=== PATIENT | female | born 1965 | race Caucasian/White ===

== ENCOUNTER 2018-07-12 09:24 | Emergency (ER) | payer OTHER ==
[~2018-07-12] VITALS: Ht 167.6 cm; Wt 136.1 kg
[~2018-07-12 09:24] MED LIST: CELE200C PO; GLUC1CAP57 PO; LOSA1TAB25 PO; NAPR-514 PO; NIFE30TA17 PO; OXYC1TAB15 PO; OXYC1TAB19 PO; TRAM50TA PO; WARF-78 PO; WARF3TAB50 PO; WARF3TAB54 PO
[2018-07-12 10:16] LABS: BASO # 0.1 x10^3/uL (0.0-0.2); BASO % 1 % (0-3); EOS # 0.4 x10^3/uL (0.0-0.7); EOS % 5 % (0-3); HEMATOCRIT 43.9 % (36.0-47.0); HEMOGLOBIN 15.6 g/dL (12.0-15.5); LYMPH # 2.2 x10^3/uL (1.0-4.8); LYMPH % 32 % (24-48); MEAN CORPUSCULAR HEMOGLOBIN 31 pg (25-35); MEAN CORPUSCULAR HGB CONC 36 g/dL (31-37); MEAN CORPUSCULAR VOLUME 88 fL (79-100); MONO # 0.3 x10^3/uL (0.0-1.1); MONO % 5 % (0-9); NEUT % 57 % (31-73); PLATELET COUNT 218 x10^3/uL (140-400); RED BLOOD COUNT 4.98 x10^6/uL (3.50-5.40); RED CELL DISTRIBUTION WIDTH 13.3 % (11.5-14.5); WHITE BLOOD COUNT 6.9 x10^3/uL (4.0-11.0)
[2018-07-12] MEDS: ONDANSETRON PF 4 MG/2 ML VIAL. IV ONE (10:19)
[2018-07-12] MEDS: IV NORMAL SALINE 1000ML BAG 1,000 ML IV ONE (10:19)
[2018-07-12 10:20] LABS: BILIRUBIN,URINE SMALL (NEG); CLARITY,URINE CLEAR; COLOR,URINE AMBER; NITRITE,URINE NEGATIVE (NEG); PH,URINE 5.5; PROTEIN,URINE NEGATIVE (NEG-TRACE)
[2018-07-12] MEDS: fentaNYL PF VIAL 100 MCG/2 ML VIAL IV ONE (10:22)
[2018-07-12 10:24] LABS: CALCIUM 9.1 mg/dL (8.5-10.1); GFR 58.2; POTASSIUM 3.6 mmol/L (3.5-5.1)
[2018-07-12 10:28] LABS: SQUAMOUS EPITHELIAL CELL,UR FEW /LPF
[2018-07-12 10:29] LABS: ALBUMIN 3.5 g/dL (3.4-5.0); ALBUMIN/GLOBULIN RATIO 0.8 (1.0-1.7); BACTERIA,URINE MODERATE /HPF (0-FEW); RBC,URINE OCC /HPF (0-2); TOTAL BILIRUBIN 0.6 mg/dL (0.2-1.0); TOTAL PROTEIN 7.8 g/dL (6.4-8.2)
[2018-07-12] MEDS: KETOROLAC 30 MG/ML VIAL. IV ONE (11:20)
--- NOTE | 2018-07-12 11:21 | RAD ---
PQRS Compliance Statement: One or more of the following individualized dose reduction techniques were utilized for this examination: 1. Automated exposure control 2. Adjustment of the mA and/or kV according to patient size 3. Use of iterative reconstruction technique CT ABDOMEN PELVIS WO CONTRAST Clinical Indication: RIGHT FLANK PAIN, H/O KIDNEY STONES. Comparison: CT abdomen and pelvis without contrast, January 07, 2011. Technique: Helical CT imaging of the abdomen and pelvis is performed without IV or oral contrast. Findings: Evaluation of solid organs and bowel is limited without oral and IV contrast, decreasing sensitivity for detection of pathology. Minimal atelectasis or scarring in the lung bases. Cardiac size normal. Hepatomegaly versus normal variant Julieta lobe. Cholecystectomy. There is fatty infiltration of the liver. The spleen, pancreas, adrenal glands, and abdominal aorta caliber are normal. No right renal or ureteral calculus. There is no right perinephric stranding or hydronephrosis. There is a punctate nonobstructing calculus in the lower pole of the left kidney. The distal left ureter is obscured due to beam hardening artifact from left hip arthroplasty. Given this limitation there is no left ureteral calculus. There is no left perinephric stranding or hydronephrosis. Stomach unremarkable. There is no dilated small bowel. Distal colon diverticulosis without diverticulitis. No colon wall thickening. The appendix is normal. No abdominal adenopathy or free fluid. Uterus and ovaries unremarkable. Urinary bladder is not well evaluated. Wall thickness is accentuated due to lack of distention. No obvious pelvic free fluid. No acute bone abnormality. Mild grade 1 anterolisthesis of L4 and L5. IMPRESSION: 1. No acute abdominal or pelvic abnormality. No obstructive uropathy. 2. Punctate nonobstructing calculus of the left kidney. 3. Fatty infiltration of the liver. Electronically signed by: Tres Maier MD (07/12/2018 11:17 AM) [id number]
[2018-07-12] MEDS: CIPROFLOXACIN 400MG PREMIX 200 ML IV ONE (12:00)
[2018-07-12] MEDS ORDERED: CIPR500T94 PO (12:43)
[2018-07-12] MEDS ORDERED: TRAM50TA PO (12:43)
--- NOTE | 2018-07-12 12:44 | PHYS DOC ---
Past Medical History Past Medical History: Hypertension, Kidney Stone Past Surgical History: Hip Replacement, Knee Replacement, Other Additional Past Surgical Histo: KIDNEY STONE REMOVAL Alcohol Use: None Drug Use: None Adult General Chief Complaint Chief Complaint: PAIN ON URINATION HPI HPI Patient is a 53 year old [f__sex] who presents with [] Review of Systems Review of Systems Constitutional: Denies fever or chills [] Eyes: Denies change in visual acuity, redness, or eye pain [] HENT: Denies nasal congestion or sore throat [] Respiratory: Denies cough or shortness of breath [] Cardiovascular: No additional information not addressed in HPI [] GI: Denies abdominal pain, nausea, vomiting, bloody stools or diarrhea [] : Denies dysuria or hematuria [] Musculoskeletal: Denies back pain or joint pain [] Integument: Denies rash or skin lesions [] Neurologic: Denies headache, focal weakness or sensory changes [] Endocrine: Denies polyuria or polydipsia [] All other systems were reviewed and found to be within normal limits, except as documented in this note. Current Medications Current Medications Current Medications Medications (Trade) Dose Ordered Sig/Babita Start Time Stop Time Status Last Admin Dose Admin Ciprofloxacin/ Dextrose 200 ml @ 200 mls/hr 1X ONCE 07/12/18 12:00 07/12/18 12:59 07/12/18 12:00 200 MLS/HR Fentanyl Citrate (Fentanyl 2ml Vial) 75 mcg 1X ONCE 07/12/18 10:15 07/12/18 10:17 DC 07/12/18 10:22 75 MCG Ketorolac Tromethamine (Toradol 30mg Vial) 30 mg 1X ONCE 07/12/18 11:15 07/12/18 11:16 DC 07/12/18 11:20 30 MG Ondansetron HCl (Zofran) 4 mg 1X ONCE 07/12/18 10:15 07/12/18 10:17 DC 07/12/18 10:19 4 MG Sodium Chloride 1,000 ml @ 1,000 mls/hr 1X ONCE 07/12/18 10:15 07/12/18 11:14 DC 07/12/18 10:19 1,000 MLS/HR Allergies Allergies Allergies Coded Allergies Type Severity Reaction Last Updated Verified No Known Drug Allergies 03/26/15 No Physical Exam Physical Exam Constitutional: Well developed, well nourished, no acute distress, non-toxic appearance. [] HENT: Normocephalic, atraumatic, bilateral external ears normal, oropharynx moist, no oral exudates, nose normal. [] Eyes: PERRLA, EOMI, conjunctiva normal, no discharge. [] Neck: Normal range of motion, no tenderness, supple, no stridor. [] Cardiovascular:Heart rate regular rhythm, no murmur [] Lungs & Thorax: Bilateral breath sounds clear to auscultation [] Abdomen: Bowel sounds normal, soft, no tenderness, no masses, no pulsatile masses. [] Skin: Warm, dry, no erythema, no rash. [] Back: No tenderness, no CVA tenderness. [] Extremities: No tenderness, no cyanosis, no clubbing, ROM intact, no edema. [] Neurologic: Alert and oriented X 3, normal motor function, normal sensory function, no focal deficits noted. [] Psychologic: Affect normal, judgement normal, mood normal. [] Current Patient Data Vital Signs Vital Signs Date Time Temp Pulse Resp B/P (MAP) Pulse Ox O2 Delivery O2 Flow Rate FiO2 07/12/18 11:21 85 115/77 (90) 98 Room Air 07/12/18 10:24 18 07/12/18 09:39 98.6 98.6 Lab Values Laboratory Tests Test 07/12/18 10:00 White Blood Count 6.9 x10^3/uL (4.0-11.0) Red Blood Count 4.98 x10^6/uL (3.50-5.40) Hemoglobin 15.6 g/dL (12.0-15.5) H Hematocrit 43.9 % (36.0-47.0) Mean Corpuscular Volume 88 fL (79-100) Mean Corpuscular Hemoglobin 31 pg (25-35) Mean Corpuscular Hemoglobin Concent 36 g/dL (31-37) Red Cell Distribution Width 13.3 % (11.5-14.5) Platelet Count 218 x10^3/uL (140-400) Neutrophils (%) (Auto) 57 % (31-73) Lymphocytes (%) (Auto) 32 % (24-48) Monocytes (%) (Auto) 5 % (0-9) Eosinophils (%) (Auto) 5 % (0-3) H Basophils (%) (Auto) 1 % (0-3) Neutrophils # (Auto) 4.0 x10^3uL (1.8-7.7) Lymphocytes # (Auto) 2.2 x10^3/uL (1.0-4.8) Monocytes # (Auto) 0.3 x10^3/uL (0.0-1.1) Eosinophils # (Auto) 0.4 x10^3/uL (0.0-0.7) Basophils # (Auto) 0.1 x10^3/uL (0.0-0.2) Urine Collection Type Unknown Urine Color Eden Urine Clarity Clear Urine pH 5.5 Urine Specific Hudson >=1.030 Urine Protein Negative mg/dL (NEG-TRACE) Urine Glucose (UA) Negative mg/dL (NEG) Urine Ketones (Stick) Negative mg/dL (NEG) Urine Blood Negative (NEG) Urine Nitrite Negative (NEG) Urine Bilirubin Small (NEG) Urine Urobilinogen Dipstick 1.0 mg/dL (0.2 mg/dL) Urine Leukocyte Esterase Moderate (NEG) Urine RBC Occ /HPF (0-2) Urine WBC 11-20 /HPF (0-4) Urine Squamous Epithelial Cells Few /LPF Urine Bacteria Moderate /HPF (0-FEW) Urine Mucus Slight /LPF Sodium Level 138 mmol/L (136-145) Potassium Level 3.6 mmol/L (3.5-5.1) Chloride Level 102 mmol/L (98-107) Carbon Dioxide Level 25 mmol/L (21-32) Anion Gap 11 (6-14) Blood Urea Nitrogen 12 mg/dL (7-20) Creatinine 1.0 mg/dL (0.6-1.0) Estimated GFR (Cockcroft-Gault) 58.2 BUN/Creatinine Ratio 12 (6-20) Glucose Level 165 mg/dL (70-99) H Calcium Level 9.1 mg/dL (8.5-10.1) Total Bilirubin 0.6 mg/dL (0.2-1.0) Aspartate Amino Transferase (AST) 44 U/L (15-37) H Alanine Aminotransferase (ALT) 83 U/L (14-59) H Alkaline Phosphatase 113 U/L (46-116) Total Protein 7.8 g/dL (6.4-8.2) Albumin 3.5 g/dL (3.4-5.0) Albumin/Globulin Ratio 0.8 (1.0-1.7) L Laboratory Tests 07/12/18 10:00 Laboratory Tests 07/12/18 10:00 EKG EKG [] Radiology/Procedures Radiology/Procedures [] Course & Med Decision Making Course & Med Decision Making Pertinent Labs and Imaging studies reviewed. (See chart for details) [] Dragon Disclaimer Dragon Disclaimer This electronic medical record was generated, in whole or in part, using a voice recognition dictation system. Departure Departure Impression: Primary Impression: UTI (urinary tract infection) Additional Impression: Pyelonephritis Disposition: HOME, SELF-CARE Condition: STABLE Referrals: JAYCOB GARCIA (PCP) Patient Instructions: Pyelonephritis, Adult, Urinary Tract Infection Additional Instructions: Increase fluids and rest. Take the medications as directed. Do not drive or operate heavy machinery until you know how you're affected by tramadol. Follow- up with your primary care physician in one week for urine recheck or return to the emergency department if worsening. Scripts Tramadol Hcl (TRAMADOL HCL) 50 Mg Tablet 50 MG PO Q6HRS PRN for PAIN, #14 TAB Prov: ANGIE BUSTILLOS APRN 07/12/18 Ciprofloxacin Hcl (CIPRO) 500 Mg Tablet 1 TAB PO BID for pylonephritis, #20 TAB Prov: ANGIE BUSTILLOS APRN 07/12/18 Problem Qualifiers ANGIE BUSTILLOS APRN Jul 12, 2018 12:44
[2018-07-12 13:00] VITALS: BP 123/76
[2018-07-12] MEDS ORDERED: CIPROFLOXACIN 400MG PREMIX 200 ML IV SCH (21:00)
== END 2018-07-12 13:28 | disposition home or self-care (01) ==
LOC: ER 09:24
DX: N12 Tubulo-interstitial nephritis, not specified as acute or chronic (principal); N39.0 Urinary tract infection, site not specified; I10 Essential (primary) hypertension; Z87.442 Personal history of urinary calculi; Z96.649 Presence of unspecified artificial hip joint; Z96.659 Presence of unspecified artificial knee joint
CPT/HCPCS: 36415; 74176; 80053; 81001; 85025; 87086; 96365; 96375; 99284; J0744; J1885; J2405; J3010; J7030

== ENCOUNTER 2019-02-12 14:39 | Emergency (ER) | payer OTHER ==
[~2019-02-12] VITALS: Ht 167.6 cm; Wt 140.6 kg
[~2019-02-12 14:39] MED LIST changes: +CIPR500T94 PO
[2019-02-12] MEDS ORDERED: fentaNYL PF VIAL 100 MCG/2 ML VIAL IV ONE ×3 (15:00→17:30)
[2019-02-12] MEDS ORDERED: ONDANSETRON PF 4 MG/2 ML VIAL. IV ONE (15:00)
[2019-02-12 15:32] LABS: BASO # 0.1 x10^3/uL (0.0-0.2); BASO % 1 % (0-3); EOS # 0.3 x10^3/uL (0.0-0.7); EOS % 5 % (0-3); HEMOGLOBIN 15.7 g/dL (12.0-15.5); LYMPH # 1.9 x10^3/uL (1.0-4.8); LYMPH % 28 % (24-48); MEAN CORPUSCULAR HEMOGLOBIN 31 pg (25-35); MEAN CORPUSCULAR HGB CONC 35 g/dL (31-37); MEAN CORPUSCULAR VOLUME 88 fL (79-100); MONO # 0.4 x10^3/uL (0.0-1.1); MONO % 5 % (0-9); NEUT # 4.2 x10^3/uL (1.8-7.7); NEUT % 62 % (31-73); PLATELET COUNT 206 x10^3/uL (140-400); RED BLOOD COUNT 5.09 x10^6/uL (3.50-5.40); RED CELL DISTRIBUTION WIDTH 13.6 % (11.5-14.5); WHITE BLOOD COUNT 6.8 x10^3/uL (4.0-11.0)
--- NOTE | 2019-02-12 15:35 | RAD ---
Examination: 3 views of the right knee HISTORY: History of fall, dislocation. COMPARISON: 03/26/2015 Findings/ impression: There is knee dislocation with the femur dislocated posteriorly, medially and inferiorly in relation to the tibia and fibula. Large knee joint effusion. Total knee arthroplasty identified. Electronically signed by: Aamir Estrada MD (02/12/2019 3:32 PM) [facility]
[2019-02-12 15:36] LABS: CALCIUM 8.9 mg/dL (8.5-10.1); CREATININE 1.1 mg/dL (0.6-1.0); POTASSIUM 3.9 mmol/L (3.5-5.1)
[2019-02-12 15:38] LABS: PROTHROMBIN TIME PATIENT 12.8 SEC (11.7-14.0)
[2019-02-12 15:43] LABS: ALBUMIN 3.6 g/dL (3.4-5.0); ALBUMIN/GLOBULIN RATIO 0.8 (1.0-1.7); TOTAL BILIRUBIN 0.6 mg/dL (0.2-1.0); TOTAL PROTEIN 7.9 g/dL (6.4-8.2)
--- NOTE | 2019-02-12 15:43 | PHYS DOC ---
Past Medical History Past Medical History: Hypertension, Kidney Stone Past Surgical History: Hip Replacement, Knee Replacement, Other Additional Past Surgical Histo: KIDNEY STONE REMOVAL Alcohol Use: None Drug Use: None Adult General Chief Complaint Chief Complaint: KNEE INJURY HPI HPI Patient is a 54 year old female who brought in by EMS because of knee injury. Patient had right knee replacement in 2016 and today had hyperextension of right knee while she was at grocery store and felt severe pain in right knee was not able to bearing weight. Patient rated her pain 5/10 at arrival to ER without movement other injuries and focal neurodeficit. Patient did not have history of problem after her knee surgery. Review of Systems Review of Systems Constitutional: Denies fever or chills [] Eyes: Denies change in visual acuity, redness, or eye pain [] HENT: Denies nasal congestion or sore throat [] Respiratory: Denies cough or shortness of breath [] Cardiovascular: No additional information not addressed in HPI [] GI: Denies abdominal pain, nausea, vomiting, bloody stools or diarrhea [] : Denies dysuria or hematuria [] Musculoskeletal: Denies back pain, reports joint pain [] Integument: Denies rash or skin lesions [] Neurologic: Denies headache, focal weakness or sensory changes [] Endocrine: Denies polyuria or polydipsia [] All other systems were reviewed and found to be within normal limits, except as documented in this note. Current Medications Current Medications Current Medications Medications (Trade) Dose Ordered Sig/Babita Start Time Stop Time Status Last Admin Dose Admin Fentanyl Citrate (Fentanyl 2ml Vial) 50 mcg 1X ONCE 02/12/19 17:30 02/12/19 17:31 DC 02/12/19 17:33 50 MCG Ondansetron HCl (Zofran) 4 mg 1X ONCE 02/12/19 15:00 02/12/19 15:01 DC 02/12/19 15:17 4 MG Propofol (Diprivan) 200 mg 1X ONCE 02/12/19 15:45 02/12/19 15:46 DC 02/12/19 17:04 200 MG Sodium Chloride 1,000 ml @ 1,000 mls/hr 1X ONCE 02/12/19 15:45 02/12/19 16:44 DC 02/12/19 17:02 1,000 MLS/HR Allergies Allergies Allergies Coded Allergies Type Severity Reaction Last Updated Verified No Known Drug Allergies 03/26/15 No Physical Exam Physical Exam Constitutional: Well developed, well nourished, mild distress, non-toxic appearance, morbidly obese. [] HENT: Normocephalic, atraumatic. Eyes: PERRLA, EOMI, conjunctiva normal, no discharge. [] Neck: Normal range of motion, no tenderness, supple, no stridor. [] Cardiovascular:Heart rate regular rhythm, no murmur [] Lungs & Thorax: Bilateral breath sounds clear to auscultation [] Skin: Warm, dry, no erythema, no rash. [] Back: No tenderness, no CVA tenderness. [] Extremities: Right knee without deformity and limited range of motion, no neurovascular deficit. Neurologic: Alert and oriented X 3, normal motor function, normal sensory function, no focal deficits noted. [] Psychologic: Affect normal, judgement normal, mood normal. [] Current Patient Data Vital Signs Vital Signs Date Time Temp Pulse Resp B/P (MAP) Pulse Ox O2 Delivery O2 Flow Rate FiO2 02/12/19 14:42 98.8 92 18 110/77 (88) 98 Room Air 98.8 Lab Values Laboratory Tests Test 02/12/19 15:15 White Blood Count 6.8 x10^3/uL (4.0-11.0) Red Blood Count 5.09 x10^6/uL (3.50-5.40) Hemoglobin 15.7 g/dL (12.0-15.5) H Hematocrit 45.0 % (36.0-47.0) Mean Corpuscular Volume 88 fL (79-100) Mean Corpuscular Hemoglobin 31 pg (25-35) Mean Corpuscular Hemoglobin Concent 35 g/dL (31-37) Red Cell Distribution Width 13.6 % (11.5-14.5) Platelet Count 206 x10^3/uL (140-400) Neutrophils (%) (Auto) 62 % (31-73) Lymphocytes (%) (Auto) 28 % (24-48) Monocytes (%) (Auto) 5 % (0-9) Eosinophils (%) (Auto) 5 % (0-3) H Basophils (%) (Auto) 1 % (0-3) Neutrophils # (Auto) 4.2 x10^3/uL (1.8-7.7) Lymphocytes # (Auto) 1.9 x10^3/uL (1.0-4.8) Monocytes # (Auto) 0.4 x10^3/uL (0.0-1.1) Eosinophils # (Auto) 0.3 x10^3/uL (0.0-0.7) Basophils # (Auto) 0.1 x10^3/uL (0.0-0.2) Prothrombin Time 12.8 SEC (11.7-14.0) Prothrombin Time INR 1.0 (0.8-1.1) Sodium Level 141 mmol/L (136-145) Potassium Level 3.9 mmol/L (3.5-5.1) Chloride Level 102 mmol/L (98-107) Carbon Dioxide Level 29 mmol/L (21-32) Anion Gap 10 (6-14) Blood Urea Nitrogen 12 mg/dL (7-20) Creatinine 1.1 mg/dL (0.6-1.0) H Estimated GFR (Cockcroft-Gault) 52.0 BUN/Creatinine Ratio 11 (6-20) Glucose Level 138 mg/dL (70-99) H Calcium Level 8.9 mg/dL (8.5-10.1) Total Bilirubin 0.6 mg/dL (0.2-1.0) Aspartate Amino Transferase (AST) 52 U/L (15-37) H Alanine Aminotransferase (ALT) 76 U/L (14-59) H Alkaline Phosphatase 118 U/L (46-116) H Total Protein 7.9 g/dL (6.4-8.2) Albumin 3.6 g/dL (3.4-5.0) Albumin/Globulin Ratio 0.8 (1.0-1.7) L Laboratory Tests 02/12/19 15:15 Laboratory Tests 02/12/19 15:15 EKG EKG [] Radiology/Procedures Radiology/Procedures [][facility] [address] [place], [place] [id number] IMAGING REPORT Signed PATIENT: MATTHIEU PALACIO ACCOUNT: [id number] : 1965 LOCATION: ER AGE: 54 SEX: F EXAM STATUS: PRE ER ORD. PHYSICIAN: PAWAN MILLER MD REASON: Post fall, possible dislocation,GIVING PAIN MEDS AND IV FIRST PROCEDURE: KNEE RIGHT 3V Examination: 3 views of the right knee HISTORY: History of fall, dislocation. COMPARISON: 03/26/2015 Findings/ impression: There is knee dislocation with the femur dislocated posteriorly, medially and inferiorly in relation to the tibia and fibula. Large knee joint effusion. Total knee arthroplasty identified. Electronically signed by: Aamir Estrada MD (02/12/2019 3:32 PM) [facility] DICTATED and SIGNED BY: AAMIR ESTRADA MD DATE: 02/12/[address] [facility] [address] [facility] [place] [address] IMAGING REPORT Signed PATIENT: MATTHIEU PALACIO ACCOUNT: [id number] : 1965 LOCATION: ER AGE: 54 SEX: F EXAM STATUS: REG ER ORD. PHYSICIAN: PAWAN MILLER MD REASON: post reduction PROCEDURE: KNEE RIGHT 2V KNEE RIGHT 2V History: Post reduction. Comparison with images from 3:18 PM of the same day. FINDINGS: There has been reduction of the right knee. No definite acute fracture is seen. Soft tissue swelling is present. Electronically signed by: Trey Marques MD (02/12/2019 5:03 PM) [facility] DICTATED and SIGNED BY: TREY MARQUES MD DATE: 02/12/19 5231 Course & Med Decision Making Course & Med Decision Making Pertinent Labs and Imaging studies reviewed. (See chart for details) Evaluation of patient in ER showed 54-year-old female patient with history of right knee replacement brought in by EMS with right knee dislocation that was reduced with conscious sedation with the patient. Knee immobilizer was applied and crutches was provided. Dr. Wade was consulted at 1533 and agreed with plan of care. I've spoken with the patient and/or caregivers. I've explained the patient's condition, diagnosis and treatment plan based on information available to me at this time. I've answered the patient's and/or caregivers questions and addressed any concerns. The patient and/or caregivers have a good understanding the patient's diagnosis, condition and treatment plan as can be expected at this point. Vital signs have been stabilized. The patient's condition is stable for discharge from the emergency department. The patient will pursue further outpatient evaluation with her primary care provider or other designated consulting physician as outlined in the discharge instructions. Patient and/or caregivers are agreeable to this plan of care and follow-up instructions have been explained in detail. The patient and/or caregivers have received these instructions in written format and expressed understanding of these discharge instructions. The patient and her caregivers are aware that if any significant change in condition or worsening of symptoms should prompt him to immediately return to this of the closest emergency department. If an emergent department is not readily available I would encourage him to call 911. Frandy Disclaimer Dragon Disclaimer This electronic medical record was generated, in whole or in part, using a voice recognition dictation system. Departure Departure Impression: Primary Impression: Right knee dislocation Additional Impressions: Elevated liver function tests Morbidly obese Disposition: HOME, SELF-CARE Condition: IMPROVED Referrals: JAYCOB GARCIA (PCP) JOSE GUADALUPE WADE MD Patient Instructions: Knee Dislocation, Knee Immobilization Additional Instructions: Follow-up with Dr. Wade in 2 days Follow-up with your primary care physician in 3-5 days Return to ER if not getting better Scripts Hydrocodone/Apap 5-325 (NORCO 5-325 TABLET) 1 Each Tablet 1 TAB PO PRN Q6HRS PRN for PAIN, #10 TAB 0 Refills Prov: PAWAN MILLER MD 02/12/19 Joint Reduction Procedure Joint Indication: Right knee Joint dislocation Consent: Consent was obtained. Procedure: The pre-reduction exam showed distal perfusion and neurologic function to be normal.. The patient was placed in the appropriate position. Anesthesia/pain control with fentanyl and 100 mg of Profore was given.. Reduction of the right knee dislocation was performed by traction. Post reduction films were obtained and revealed satisfactory reduction. A post- reduction exam revealed distal perfusion and neurologic function to be normal. The affected area was immobilized with knee immobilizer The patient tolerated the procedure well. Complications: none. MODERATE SEDATION ASSESSMENT* RISKS/ALTERNATIVES Risks/Alternatives Risks and alternatives of this type of sedation and procedure discussed with: RISK/ALTERNATIVES: Patient H & P ON CHART H & P H & P on chart and reviewed for co-morbid conditions and appropriate labs. H&P ON CHART: Yes STATUS PREG STATUS ASSESSED: Yes MEDS/ALLERGIES REVIEWED Meds/Allergies Reviewed Medications and Allergies including time and route of recently administered narcotics and sedatives. MEDS/ALLERGIES REVIEWED: Yes ASA RATING ASA RATING: II AIRWAY ASSESSMENT Airway Assessment Airway patency, oral function limitations, presence of caps, crowns, dentures, partials, and ability to extend neck assessed. AIRWAY ASSESSMENT: Yes MALLAMPATI SCORE MALLAMPATI SCORE: II PRE-SEDATION ASSESSMENT PRE-SEDATION ASSESSMENT: Yes Problem Qualifiers Primary Impression: Right knee dislocation Encounter type: initial encounter Qualified Codes: S83.104A - Unspecified dislocation of right knee, initial encounter PAWAN MILLER MD Feb 12, 2019 15:43
[2019-02-12] MEDS ORDERED: PROPOFOL 10 MG/ML (20ML) VIAL. IV ONE (15:45)
[2019-02-12] MEDS ORDERED: IV NORMAL SALINE 1000ML BAG 1,000 ML IV ONE (15:45)
[2019-02-12 16:28] VITALS: BP 110/77
--- NOTE | 2019-02-12 17:06 | RAD ---
KNEE RIGHT 2V History: Post reduction. Comparison with images from 3:18 PM of the same day. FINDINGS: There has been reduction of the right knee. No definite acute fracture is seen. Soft tissue swelling is present. Electronically signed by: Trey Marques MD (02/12/2019 5:03 PM) [facility]
[2019-02-12] MEDS ORDERED: HYDR-3164 PO (17:21)
[2019-02-12 17:30] VITALS: BP 116/78
== END 2019-02-12 17:50 | disposition home or self-care (01) ==
LOC: ER 14:39
DX: S83.104A Unspecified dislocation of right knee, initial encounter (principal); I10 Essential (primary) hypertension; Z96.651 Presence of right artificial knee joint; Z96.649 Presence of unspecified artificial hip joint; W18.39XA Other fall on same level, initial encounter; Y93.89 Activity, other specified; Y92.89 Other specified places as the place of occurrence of the external cause; Y99.8 Other external cause status
CPT/HCPCS: 27550; 36415; 73560; 73562; 80053; 85025; 85610; 96374; 96375; 96376; 99285; J2405; J2704; J3010; J7030; 27560; 27562